=== PATIENT | female | born 2000 | race Hispanic/Latino ===

== ENCOUNTER 2021-05-08 16:44 | Emergency (ER) | payer MEDICAID ==
[~2021-05-08] VITALS: Ht 162.6 cm; Wt 65.8 kg
[2021-05-08 16:45] VITALS: BP 103/67
[2021-05-08] MEDS ORDERED: 0.9%NACL 1000ML 1,000 ML IV ONE ×2 (17:17→18:00)
[2021-05-08 17:33] LABS: APPEARANCE,URINE Clear (CLEAR); BILIRUBIN,URINE Negative (NEGATIVE); COLOR,URINE Yellow (YELLOW); GLUCOSE, URINE (UA) Negative (NEGATIVE); KETONES,URINE Negative (NEGATIVE); LEUKOCYTE ESTERASE ,URINE Negative (NEGATIVE); NITRATE,URINE Negative (NEGATIVE); OCCULT BLOOD,URINE Negative (NEGATIVE); PH,URINE 6.5 (5.0-8.0); PROTEIN,URINE Negative (NEGATIVE)
[2021-05-08] MEDS ORDERED: ACET-2247 PO (17:52)
[2021-05-08] MEDS ORDERED: ACETAMINOPHEN 500 MG TABLET PO ONE (18:00)
[2021-05-08 18:26] VITALS: BP 108/72
== END 2021-05-08 18:29 | disposition home or self-care (01) ==
LOC: EDH 16:44
DX: O98.512 Other viral diseases complicating pregnancy, second trimester (principal); B34.9 Viral infection, unspecified; O99.282 Endocrine, nutritional and metabolic diseases complicating pregnancy, second trimester; E86.0 Dehydration; Z3A.18 18 weeks gestation of pregnancy
CPT/HCPCS: 81003; 87804 ×2; 87880; 96360; 99283; J7030

== ENCOUNTER 2022-01-03 07:59 | Emergency (ER) | payer MEDICAID ==
[~2022-01-03] VITALS: Ht 162.6 cm; Wt 72.6 kg
[~2022-01-03 07:59] MED LIST: ACET-2247 PO
[2022-01-03] MEDS ORDERED: FLUORESCEIN SODIUM 1 STRIP STRIP ONE (08:07)
[2022-01-03] MEDS ORDERED: TETRACAINE HCL 0.5% 4 ML OPHTH SOLN ONE (08:07)
[2022-01-03] MEDS ORDERED: ACET1TAB25 PO (08:36)
[2022-01-03] MEDS ORDERED: POLY10DR22 OD (08:36)
[2022-01-03 08:49] VITALS: BP 109/64
== END 2022-01-03 08:51 | disposition home or self-care (01) ==
LOC: EDH 07:59
DX: S05.01XA Injury of conjunctiva and corneal abrasion without foreign body, right eye, initial encounter (principal); X58.XXXA Exposure to other specified factors, initial encounter; Y93.89 Activity, other specified; Y92.89 Other specified places as the place of occurrence of the external cause; Y99.8 Other external cause status

== ENCOUNTER 2022-04-27 07:17 | Emergency (ER) | payer MEDICAID ==
[~2022-04-27] VITALS: Ht 160 cm; Wt 66.7 kg
[~2022-04-27 07:17] MED LIST changes: +ACET-2079 PO; +POLY10DR22 OD
[2022-04-27] MEDS ORDERED: KETOROLAC 15MG/ML VIAL (15MG/ML) ONE (07:53)
[2022-04-27] MEDS ORDERED: ONDANSETRON 4MG INJ ONE (07:53)
[2022-04-27] MEDS ORDERED: FAMOTIDINE 20MG VIAL IV ONE ×2 (07:54→08:00)
[2022-04-27] MEDS ORDERED: KETOROLAC 15MG/ML VIAL (15MG/ML) IV ONE (08:00)
[2022-04-27] MEDS ORDERED: ONDANSETRON 4MG INJ IVP ONE (08:00)
[2022-04-27 08:01] LABS: BASOPHILS % (AUTO) 0.5 % (0.0-5.0); EOSINOPHILS % (AUTO) 1.6 % (0.0-8.0); HEMATOCRIT 38.8 % (36-48); LYMPHOCYTES % (AUTO) 24.7 % (21.0-51.0); MEAN CORPUSCULAR HEMOGLOBIN 25.7 pg (27.0-33.0); MEAN CORPUSCULAR HGB CONC 32.5 g/dL (32.0-36.0); MEAN CORPUSCULAR VOLUME 79.2 fL (80-100); MONOCYTES % (AUTO) 9.9 % (3.0-13.0); NEUTROPHILS % (AUTO) 63.1 % (40.0-77.0); PLATELET COUNT (AUTO) 231 K/uL (130-400); RED CELL DISTRIBUTION WIDTH 14.6 % (11.0-15.5); WHITE BLOOD COUNT (AUTO) 4.3 K/uL (4.8-10.8)
[2022-04-27 08:05] LABS: APPEARANCE,URINE SL CLOUDY (CLEAR); BILIRUBIN,URINE LARGE (NEGATIVE); COLOR,URINE ORANGE (YELLOW); GLUCOSE, URINE (UA) NEGATIVE (NEGATIVE); KETONES,URINE >=80 mg/dL (NEGATIVE); LEUKOCYTE ESTERASE ,URINE NEGATIVE (NEGATIVE); NITRATE,URINE POSITIVE (NEGATIVE); OCCULT BLOOD,URINE NEGATIVE (NEGATIVE); PH,URINE 5.5 (5.0-8.0); PROTEIN,URINE 30 mg/dL (NEGATIVE)
[2022-04-27 08:08] LABS: HCG,QUALITATIVE URINE NEGATIVE (NEGATIVE)
[2022-04-27 08:17] LABS: RBC,URINE 0-1 /HPF (0-1)
[2022-04-27 08:18] LABS: BACTERIA,URINE Few /HPF (None Seen); CALCIUM OXALATE CRYSTALS,UR Moderate /LPF (None Seen); MUCUS,URINE Moderate LPF (None Seen); SQUAMOUS EPITHELIAL CELL,UR Few /HPF (0-2)
[2022-04-27 08:21] LABS: ALANINE AMINOTRANSFERASE 473 U/L (12-78); ASPARTATE AMINOTRANSFERASE 565 U/L (10-37); CARBON DIOXIDE 27 mmol/L (21-32); CHLORIDE 102 mmol/L (101-111); CREATININE 0.8 mg/dL (0.5-1.5); GLOMERULAR FILTR. RATE CALC 96 mL/min (>60); GLUCOSE,RANDOM 95 mg/dL (70-105); LIPASE 119 U/L (114-286); POTASSIUM 3.1 mmol/L (3.5-5.1); SODIUM SERUM 140 mmol/L (136-145); TOTAL PROTEIN, SERUM 7.4 g/dL (6.0-8.3); UREA NITROGEN, BLOOD 9 mg/dL (7-18)
[2022-04-27] MEDS ORDERED: CEFTRIAXONE 2GM VIAL IVP ONE (09:30)
[2022-04-27 09:43] VITALS: BP 115/67
[2022-04-27] MEDS ORDERED: FAMO-136 PO (09:57)
[2022-04-27] MEDS ORDERED: IBUP-1493 PO (09:57)
== END 2022-04-27 10:08 | disposition home or self-care (01) ==
LOC: EDH 07:17
DX: K80.20 Calculus of gallbladder without cholecystitis without obstruction (principal); K29.70 Gastritis, unspecified, without bleeding
CPT/HCPCS: 99284; 96374; 96375; 76705; 80053; 83690; 85025; 87088; 81001; 81025; 36415; J0696; J2405; J1885; S0028; J3490

== ENCOUNTER 2022-04-28 22:22 | Inpatient (IN) | payer MEDICAID ==
[~2022-04-28] VITALS: Ht 162.6 cm; Wt 67.5 kg
[~2022-04-28 22:22] MED LIST changes: +FAMO-136 PO; +IBUP-1493 PO
[2022-04-28] MEDS ORDERED: ONDANSETRON 4MG INJ IVP ONE (23:00)
[2022-04-28] MEDS ORDERED: 0.9%NACL 1000ML 1,000 ML IV ONE (23:00)
[2022-04-28] MEDS ORDERED: KETOROLAC 15MG/ML VIAL (15MG/ML) IV ONE (23:00)
[2022-04-28] MEDS ORDERED: MORPHINE 4 MG SYG IVP ONE (23:00)
[2022-04-28 23:27] LABS: BASOPHILS % (AUTO) 0.5 % (0.0-5.0); EOSINOPHILS % (AUTO) 1.1 % (0.0-8.0); HEMATOCRIT 39.4 % (36-48); LYMPHOCYTES % (AUTO) 14.5 % (21.0-51.0); MEAN CORPUSCULAR HEMOGLOBIN 25.8 pg (27.0-33.0); MEAN CORPUSCULAR HGB CONC 32.2 g/dL (32.0-36.0); MEAN CORPUSCULAR VOLUME 80.1 fL (80-100); MONOCYTES % (AUTO) 8.7 % (3.0-13.0); PLATELET COUNT (AUTO) 254 K/uL (130-400); RED BLOOD CELL COUNT(AUTO) 4.92 MIL/uL (4.00-5.50); RED CELL DISTRIBUTION WIDTH 14.6 % (11.0-15.5); WHITE BLOOD COUNT (AUTO) 5.7 K/uL (4.8-10.8)
[2022-04-28 23:32] LABS: APPEARANCE,URINE CLEAR (CLEAR); BILIRUBIN,URINE MODERATE (NEGATIVE); COLOR,URINE YELLOW (YELLOW); GLUCOSE, URINE (UA) NEGATIVE (NEGATIVE); KETONES,URINE >=80 mg/dL (NEGATIVE); LEUKOCYTE ESTERASE ,URINE NEGATIVE (NEGATIVE); NITRATE,URINE NEGATIVE (NEGATIVE); OCCULT BLOOD,URINE NEGATIVE (NEGATIVE); PROTEIN,URINE NEGATIVE (NEGATIVE); UROBILINOGEN,URINE 0.2 mg/dL (0.2-1.0)
[2022-04-28 23:38] LABS: CREATININE 0.8 mg/dL (0.5-1.5); POTASSIUM 3.3 mmol/L (3.5-5.1)
[2022-04-28 23:43] LABS: ALBUMIN 4.2 g/dL (3.5-5.0); TOTAL PROTEIN, SERUM 8.1 g/dL (6.0-8.3)
[2022-04-28 23:47] LABS: BACTERIA,URINE None Seen /HPF (None Seen); RBC,URINE 0-1 /HPF (0-1); SQUAMOUS EPITHELIAL CELL,UR Few /HPF (0-2); WBC,URINE 0-1 /HPF (0-1)
[2022-04-28 23:48] LABS: HCG,QUALITATIVE URINE NEGATIVE (NEGATIVE)
[2022-04-29] MEDS ORDERED: MORPHINE 2 MG SYG IVP PRN
[2022-04-29] MEDS ORDERED: ONDANSETRON 4MG INJ IVP PRN
[2022-04-29] MEDS: DEXTROSE 5 % AND 0.9 % NACL 1,000 ML IV SCH ×3 (01:05→20:18)
[2022-04-29 05:40] VITALS: BP 108/53
[2022-04-29 06:18] LABS: BASOPHILS % (AUTO) 0.4 % (0.0-5.0); EOSINOPHILS % (AUTO) 2.4 % (0.0-8.0); MEAN CORPUSCULAR HEMOGLOBIN 26.4 pg (27.0-33.0); MEAN CORPUSCULAR HGB CONC 32.6 g/dL (32.0-36.0); MEAN CORPUSCULAR VOLUME 80.8 fL (80-100); MONOCYTES % (AUTO) 8.1 % (3.0-13.0); NEUTROPHILS % (AUTO) 47.9 % (40.0-77.0); PLATELET COUNT (AUTO) 216 K/uL (130-400); RED BLOOD CELL COUNT(AUTO) 4.21 MIL/uL (4.00-5.50); RED CELL DISTRIBUTION WIDTH 14.6 % (11.0-15.5); WHITE BLOOD COUNT (AUTO) 4.6 K/uL (4.8-10.8)
[2022-04-29 06:29] LABS: ALBUMIN 3.3 g/dL (3.5-5.0); CREATININE 0.7 mg/dL (0.5-1.5); MAGNESIUM 1.8 mg/dL (1.80-2.40); POTASSIUM 3.3 mmol/L (3.5-5.1); TOTAL PROTEIN, SERUM 6.5 g/dL (6.0-8.3)
[2022-04-29 07:50] VITALS: BP 104/44
[2022-04-29 11:27] VITALS: BP 114/75
[2022-04-29] MEDS ORDERED: LIDOCAINE HCL-MPF 1% 2ML VIAL IV PRN (16:00)
[2022-04-29] MEDS ORDERED: POTASSIUM CHLORIDE 20MEQ/100ML 100 ML IV PRN (16:00)
[2022-04-29] MEDS ORDERED: KCL 20 MEQ ERTAB PO PRN (16:00)
[2022-04-29 16:02] VITALS: BP 116/70
[2022-04-29] MEDS: POTASSIUM CHLORIDE 10% ELIXIR 20 MEQ/15 ML UDCUP PO PRN ×3 (16:50→23:55)
[2022-04-29] MEDS ORDERED: AMP/SULBAC 3GM+NS 100ML IV SCH (18:00)
[2022-04-29] MEDS: AMP/SULBAC 3GM+NS 100ML 100 ML IV SCH ×2 (20:18→20:28)
[2022-04-29 20:31] VITALS: BP 124/60
[2022-04-30] VITALS (27 sets, daily range): BP systolic 71–163; BP diastolic 55–128
[2022-04-30 04:10] LABS: BASOPHILS % (AUTO) 0.5 % (0.0-5.0); EOSINOPHILS % (AUTO) 4.5 % (0.0-8.0); HEMATOCRIT 35.7 % (36-48); MEAN CORPUSCULAR HEMOGLOBIN 26.2 pg (27.0-33.0); MEAN CORPUSCULAR HGB CONC 32.2 g/dL (32.0-36.0); MEAN CORPUSCULAR VOLUME 81.3 fL (80-100); MONOCYTES % (AUTO) 9.2 % (3.0-13.0); NEUTROPHILS % (AUTO) 41.5 % (40.0-77.0); PLATELET COUNT (AUTO) 215 K/uL (130-400); RED BLOOD CELL COUNT(AUTO) 4.39 MIL/uL (4.00-5.50); RED CELL DISTRIBUTION WIDTH 14.6 % (11.0-15.5); WHITE BLOOD COUNT (AUTO) 3.8 K/uL (4.8-10.8)
[2022-04-30] MEDS: AMP/SULBAC 3GM+NS 100ML 100 ML IV SCH ×4 (04:16→23:20)
[2022-04-30 04:25] LABS: CREATININE 0.7 mg/dL (0.5-1.5); POTASSIUM 3.7 mmol/L (3.5-5.1)
[2022-04-30 05:05] LABS: INR 0.98 (0.85-1.15); PROTHROMBIN TIME 10.7 SEC (9.6-11.6)
[2022-04-30 05:06] LABS: PARTIAL THROMBOPLASTIN TIME 24.9 SEC (26.3-35.5)
[2022-04-30] MEDS ORDERED: IOHEXOL-350 50ML VIAL IV ONE (11:07)
[2022-04-30] MEDS ORDERED: FENTANYL CITRATE PF 50 MCG/1 ML 2ML VIAL ONE (12:34)
[2022-04-30] MEDS ORDERED: MIDAZOLAM HCL 1 MG/ML 2ML VIAL ONE (12:34)
[2022-04-30] MEDS ORDERED: GLYCOPYRROLATE 0.2 MG/ML 5 ML VIAL ONE (12:34)
[2022-04-30] MEDS ORDERED: PROPOFOL 10 MG/ML 20ML VIAL IV ONE (12:35)
[2022-04-30] MEDS ORDERED: DEXAMETHASONE SOD PHOSPHATE 10MG/ML 1ML VIAL ONE (12:41)
[2022-04-30] MEDS ORDERED: ROCURONIUM 10MG/1ML SYR 10 MG/ML ML ONE (12:41)
[2022-04-30] MEDS ORDERED: GLYCOPYRROLATE 1 MG/5 ML SYRINGE ONE (14:29)
[2022-04-30] MEDS: DEXTROSE 5 % AND 0.9 % NACL 1,000 ML IV SCH (15:49)
[2022-05-01] VITALS (26 sets, daily range): BP systolic 99–127; BP diastolic 50–85
[2022-05-01] MEDS: DEXTROSE 5 % AND 0.9 % NACL 1,000 ML IV SCH ×2 (04:41→23:38)
[2022-05-01] MEDS: AMP/SULBAC 3GM+NS 100ML 100 ML IV SCH ×4 (05:52→23:36)
[2022-05-01] MEDS ORDERED: BUPIVACAINE/EPI/PF 0.5% 30ML VIAL IJ ONE (10:33)
[2022-05-01] MEDS ORDERED: LIDOCAINE PF 100MG/5ML (2%) SYRINGE 5ML ONE (10:44)
[2022-05-01] MEDS ORDERED: GLYCOPYRROLATE 1 MG/5 ML SYRINGE ONE (10:44)
[2022-05-01] MEDS ORDERED: ONDANSETRON 4MG INJ ONE (10:44)
[2022-05-01] MEDS ORDERED: SUCCINYLCHOLINE CHLORIDE 20 MG/ML 10 ML VIAL ONE (10:44)
[2022-05-01] MEDS ORDERED: SUCCINYLCHOLINE 200MG/10ML SYR ONE (10:44)
[2022-05-01] MEDS ORDERED: ROCURONIUM 10MG/1ML SYR 10 MG/ML ML ONE (10:45)
[2022-05-01] MEDS ORDERED: MIDAZOLAM HCL 1 MG/ML 2ML VIAL ONE (10:45)
[2022-05-01] MEDS ORDERED: NEOSTIGMINE 5MG/5ML SYR IV ONE (10:45)
[2022-05-01] MEDS ORDERED: FENTANYL CITRATE PF 50 MCG/1 ML 2ML VIAL ONE (10:45)
[2022-05-01] MEDS ORDERED: PROPOFOL 10 MG/ML 20ML VIAL IV ONE (10:45)
[2022-05-01] MEDS ORDERED: IOHEXOL-350 50ML VIAL IV ONE (11:02)
[2022-05-01] MEDS ORDERED: MEPERIDINE-PF 25 MG/ML SYG ONE ×2 (11:03→12:18)
[2022-05-01] MEDS: LACTATED RINGERS 1000ML 1,000 ML IV SCH ×2 (12:00→23:38)
[2022-05-01] MEDS ORDERED: TRAMADOL HCL 50 MG TABLET PO PRN (14:30)
[2022-05-02 04:00] VITALS: BP 107/50
[2022-05-02] MEDS: AMP/SULBAC 3GM+NS 100ML 100 ML IV SCH ×2 (05:21→12:21)
[2022-05-02 05:27] LABS: BASOPHILS % (AUTO) 0.4 % (0.0-5.0); EOSINOPHILS % (AUTO) 1.4 % (0.0-8.0); HEMATOCRIT 32.4 % (36-48); LYMPHOCYTES % (AUTO) 40.4 % (21.0-51.0); MEAN CORPUSCULAR HEMOGLOBIN 26.2 pg (27.0-33.0); MEAN CORPUSCULAR HGB CONC 32.7 g/dL (32.0-36.0); MEAN CORPUSCULAR VOLUME 80.2 fL (80-100); MONOCYTES % (AUTO) 6.1 % (3.0-13.0); NEUTROPHILS % (AUTO) 51.6 % (40.0-77.0); PLATELET COUNT (AUTO) 222 K/uL (130-400); RED BLOOD CELL COUNT(AUTO) 4.04 MIL/uL (4.00-5.50); RED CELL DISTRIBUTION WIDTH 14.6 % (11.0-15.5); WHITE BLOOD COUNT (AUTO) 7.6 K/uL (4.8-10.8)
[2022-05-02 05:50] LABS: ALBUMIN 2.9 g/dL (3.5-5.0); CREATININE 0.7 mg/dL (0.5-1.5); TOTAL PROTEIN, SERUM 5.9 g/dL (6.0-8.3)
[2022-05-02 05:54] LABS: POTASSIUM 2.8 mmol/L (3.5-5.1)
[2022-05-02] MEDS: POTASSIUM CHLORIDE 10% ELIXIR 20 MEQ/15 ML UDCUP PO PRN ×3 (06:04→12:21)
[2022-05-02 07:35] VITALS: BP 102/54
[2022-05-02] MEDS: DEXTROSE 5 % AND 0.9 % NACL 1,000 ML IV SCH (08:00)
[2022-05-02] MEDS: MAGNESIUM 2GM PREMIX 50ML 50 ML IV PRN ×2 (08:31→13:40)
[2022-05-02 10:55] VITALS: BP 114/66
[2022-05-02 15:43] VITALS: BP 122/57
== END 2022-05-02 17:55 | disposition home or self-care (01) | DRG 263 ==
LOC: EDH 22:22 → EDHIP 22:23 → 4AH 04-29 05:36
PROVIDERS: ADMIT Internal Medicine Infectious Disease; ATTEND Internal Medicine Infectious Disease
PROC: BF131ZZ Fluoroscopy of Gallbladder and Bile Ducts using Low Osmolar Contrast (ICD-10-PCS; 2022-05-01)
PROC: 0FT44ZZ Resection of Gallbladder, Percutaneous Endoscopic Approach (ICD-10-PCS; principal; 2022-05-01 10:43)
DX: K80.62 Calculus of gallbladder and bile duct with acute cholecystitis without obstruction (principal); K76.0 Fatty (change of) liver, not elsewhere classified; D64.9 Anemia, unspecified; Z20.822 Contact with and (suspected) exposure to COVID-19; K82.8 Other specified diseases of gallbladder; R53.81 Other malaise
CPT/HCPCS: 36415; 43262; 43264; 48400; 74181; 74330; 76705; 80048; 80053; 81001; 81025; 82150; 83690; 83735; 85025; 85610; 85730; 87088; 87635; 96374; 96375; C1758; C1769; C1773; G0378; J0295; J0330; J0696; J1100; J1885; J2001; J2175; J2250; J2270; J2405; J2704; J2710; J3010; J3475; J3490; J7030; J7042; Q9967; U0003